=== PATIENT | male | born 1955 | race Caucasian/White ===

== ENCOUNTER → 2019-05-10 | Outpatient (CLI) | payer BC ==
--- NOTE | 2019-05-10 14:50 | MR ---
EXAMINATION TYPE: MR shoulder RT wo con DATE OF EXAM: 05/10/2019 COMPARISON: None HISTORY: Right shoulder pain TECHNIQUE: Multiplanar, multisequence imaging of the right shoulder is performed without contrast. FINDINGS: Rotator Cuff: Rotator cuff appears attenuated. There is abnormal increased signal associated with the rotator cuff. At the anterior aspect there is a partial full-thickness tear of the supraspinatus ten don near the insertion site on the humerus. Partial thickness tear suspected at the infraspinatus ten don, there is a frayed appearance. Acromioclavicular Joint: Arthropathy present at the acromioclavicular joint. Some fluid signal presen t in the subacromial subdeltoid bursa. There is a distal acromial spur. Glenohumeral Joint: Intact. Labrum: Truncated appearance is present at the superior labrum with some intrasubstance signal. Some linear increased signal present within the anterior labrum, difficult to exclude labral tear, SLAP le maria esther. Biceps Tendon: Not well seen but thought to be within the bicipital groove Bone marrow signal: No focal abnormal marrow signal is appreciated. Other: Small joint effusion present. IMPRESSION: Rotator cuff tears as described. Correlate for impingement. Difficult to exclude labral tear, additio nal findings above.
== END | disposition home or self-care (01) ==
LOC: RADMRIMAIN 10:47
PROVIDERS: ATTEND Physician Assistant
DX: M19.011 Primary osteoarthritis, right shoulder (principal); M75.101 Unspecified rotator cuff tear or rupture of right shoulder, not specified as traumatic

== ENCOUNTER → 2019-06-02 | Outpatient (CLI) | payer BC ==
--- NOTE | 2019-06-03 07:21 | US ---
EXAMINATION TYPE: US kidneys/renal and bladder DATE OF EXAM: 06/02/2019 COMPARISON: NONE CLINICAL HISTORY: [id number] ABN KIDNEY FUNCTIONS. Patient states one of his kidneys is non-functioning but doesn't know which one. EXAM MEASUREMENTS: Right Kidney: 10.8 x 5.2 x 5.6 cm Left Kidney: 6.6 x 3.5 x 3.6 cm Right Kidney: No hydronephrosis or masses seen Left Kidney: Measuring small. No hydronephrosis. Lobular contour. This could represent a dromedary hu mp, however CT is recommended to ensure no underlying mass. Bladder: wnl Bilateral Jets seen: Yes There is no evidence for hydronephrosis at this point in time. No nephrolithiasis is seen. The urina ry bladder is anechoic. Bilateral ureteral jets are seen. IMPRESSION: 1. Lobular contour of the left kidney that may simply represent a dromedary hump. However CT abdomen with contrast is recommended to ensure no underlying mass. 2. No hydronephrosis or nephrolithiasis of either kidney.
== END | disposition home or self-care (01) ==
LOC: RADUSWWP 15:39
PROVIDERS: ATTEND Family Medicine
DX: R94.4 Abnormal results of kidney function studies (principal)
CPT/HCPCS: 76770

== ENCOUNTER → 2019-06-18 | Outpatient (CLI) | payer BC ==
--- NOTE | 2019-06-18 16:09 | CT ---
EXAMINATION TYPE: CT abdomen w con DATE OF EXAM: 06/18/2019 COMPARISON: Ultrasound exam 06/02/2019 HISTORY: Abnormal US study CT DLP: 846.7 mGycm Automated exposure control for dose reduction was used. TECHNIQUE: Helical acquisition of images was performed from the lung bases through the top of iliac crest to include entire abdomen. CONTRAST: Performed with Oral Contrast and with IV Contrast, patient injected with 100 mL of Isovue 300. FINDINGS: Lung bases are clear of consolidation. There is no pleural effusion. Heart size is normal. Stomach ap pears normal. Liver spleen pancreas appear normal. Gallbladder is contracted. There is no adrenal mass. Left kidney is small with cortical thinning. Right kidney shows some compen satory hypertrophy. There is no hydronephrosis. There is no evidence of a renal mass. There is cortic al hypodensity upper and lower pole left kidney. There is no retroperitoneal adenopathy. Ureters are not dilated. Abdominal aorta is atheromatous. Stone endix appears normal. There is no mesenteric edema. There is no ascites or free air. IMPRESSION: CORTICAL THINNING AND HYPODENSITY IN THE CORTEX LEFT KIDNEY CONSISTENT WITH ATROPHY AND SCARRING. THI S COULD BE FROM CHRONIC PYELONEPHRITIS. RENAL ISCHEMIA ALSO POSSIBLE. NO EVIDENCE OF A RENAL MASS.
== END | disposition home or self-care (01) ==
LOC: RADCTMAIN 08:30
PROVIDERS: ATTEND Family Medicine
DX: R93.422 Abnormal radiologic findings on diagnostic imaging of left kidney (principal)
CPT/HCPCS: 74160; Q9967

== ENCOUNTER → 2020-08-08 | Outpatient (CLI) | payer BC | END | disposition home or self-care (01) | LOC: LABWHC1 08:54 | PROVIDERS: ATTEND Family Medicine | DX: Z20.828 Contact with and (suspected) exposure to other viral communicable diseases (principal) | CPT/HCPCS: U0003; C9803 ==